=== PATIENT | female | born 1960 | race Caucasian/White ===

== ENCOUNTER → 2016-07-07 | Outpatient (CLI) | payer OTHER ==
[~2016-07-07] MED LIST: ACETAMINOPHEN PO; ADVAIR 1001 DISK W/D PO; ADVAIR 5001 DISK W/D PO; ALBUTEROL17 G1 IH; ALBUTEROL17 GM INH; ALDACTONE25 MG PO; ALLEGRA PO; AMIODARONE PO; ATENOLOL PO; CIPRO PO; CLEOCIN PO; COMBIVENT MININEB INH; COMBIVENT U/D3 ML INH; COREG3.125 MG PO; DIOVAN80 M1 PO; HYDRALAZINE HCL50 MG PO; IBUPROFEN PO; IMODIUM A-D2 M1 PO; LASIX; LASIX PO; LASIX20 MG PO; LEVAQUIN P500 MG/100 PO; LORATADINE PO; OMNICEF PO; PROAIR HFA8.5 GM IH; QVAR7.3 G1 INH; TETRACYCLINE PO; ZITHROMAX PO; ZYRTEC PO
--- NOTE | ~2016-07-07 | US6 ---
[facility] A Service of [facility] & [facility] / [facility] RADIOLOGY TEXT RESULTS PATIENT: TONYA PHILLIPS LOCATION: CGUS : 56 UNIT #: [id number] AGE: [address]: Petros Ramos MD SEX: F ORDER DR: [id number] [facility] [address] [place], [place] [address] [id number] O MR#: [id number] Acc #: [id number] NAME: TONYA PHILLIPS : 1960 SEX: F STUDY DATE/TIME: 07/07/2016 11:21 UNIT: US ROOM: STUDY DESCRIPTION: US Abdominal Limited Attending Physician: Petros Ramos M.D. Referring Physician: Petros Ramos M.D. Ordering Physician: Petros Ramos M.D. Primary Care Physician: Petros Ramos M.D. MEDICAL IMAGING REPORT This report is preliminary unless electronic signature is present EXAM Right upper quadrant ultrasound 07/07/2016 HISTORY Abnormally elevated liver enzymes on 07/02/2016. FINDINGS The liver demonstrates an increase in echotexture with attenuation of the ultrasound beam characteristic of fatty infiltration. No cystic or solid mass lesions were seen in the liver. The intra- and extrahepatic bile ducts are not dilated. The gallbladder contains multiple shadowing gallstones but there is no evidence of gallbladder wall thickening or pericholecystic fluid. The common duct measures 2 mm. The pancreas and right kidney are normal. IMPRESSION 1. Fatty infiltration of the liver. 2. Cholelithiasis. Dictated by... Wil Allison M.D. THIS IS AN ELECTRONICALLY VERIFIED REPORT Wil Allison M.D. at 07/08/2016 8:03 AM BRIANA/oscar TD: 07/07/2016 18:56 JOB #: [id number] MEDICAL IMAGING REPORT Page 1 of 1 COPY
== END | disposition home or self-care (01) ==
LOC: CGUS 10:30
DX: R74.8 Abnormal levels of other serum enzymes (principal); K76.0 Fatty (change of) liver, not elsewhere classified; K80.20 Calculus of gallbladder without cholecystitis without obstruction
CPT/HCPCS: 76705